=== PATIENT | female | born 1960 | race Caucasian/White ===

== ENCOUNTER 2017-04-04 21:46 | Emergency (ER) | payer OTHER ==
[2017-04-04 21:51] VITALS: BP 129/65
[2017-04-04] MEDS ORDERED: AMOX/CLAV 875 MG/125 MG TABLET PO STA (21:59)
--- NOTE | 2017-04-04 22:00 | ED Physician Documentation ---
PD HPI HEENT - Stated complaint Stated Complaint: EAR PX - Chief complaint Chief Complaint: Heent - History obtained from History obtained from: Patient - History of Present Illness Timing - onset: Other (She developed sore throat about a week ago, was not too bad but over the last couple of days has had a lot of ear pain especially on the left and some eye drainage bilaterally without fevers.) Review of Systems Constitutional: denies: Fever, Chills Ears: reports: Ear pain. denies: Loss of hearing, Drainage/discharge Nose: denies: Rhinorrhea / runny nose, Congestion Throat: reports: Sore throat PD PAST MEDICAL HISTORY - Present Medications Home Medications: Ambulatory Orders Medication Instructions Recorded Confirmed Amox/Clav 875/125 [Augmentin] 1 each PO Q12H #20 tablet 04/04/17 - Allergies Allergies/Adverse Reactions: Allergies Allergy/AdvReac Type Severity Reaction Status Date / Time No Known Drug Allergies Allergy Verified 04/04/17 21:51 PD ED PE NORMAL - Vitals Vital signs reviewed: Yes - General General: Alert and oriented X 3, No acute distress - HEENT HEENT: PERRL, EOMI, Other (Mild bilateral conjunctivitis in a pattern consistent with viral conjunctivitis. She has severe left otitis media, right TM is retracted. Oropharynx appears normal.) - Neck Neck: Supple, no meningeal sign, No bony TTP - Derm Derm: No rash - Neuro Neuro: Alert and oriented X 3, Normal speech - Psych Psych: Normal mood, Normal affect Results - Vitals Vitals: Vital Signs - 24 hr 04/04/17 21:49 Temperature 37.5 C Heart Rate 98 Respiratory 18 Rate Blood Pressure 129/65 O2 Saturation 98 Oxygen O2 Source Room air Departure - Departure Disposition: 01 Home, Self Care Clinical Impression: LOM (left otitis media) Qualifiers: Otitis media type: suppurative Chronicity: acute Recurrence: not specified as recurrent Spontaneous tympanic membrane rupture: without spontaneous rupture Qualified Code(s): H66.002 - Acute suppurative otitis media without spontaneous rupture of ear drum, left ear Condition: Good Record reviewed to determine appropriate education?: Yes Instructions: ED Otitis Media Acute Adult Prescriptions: Amox/Clav 875/125 [Augmentin] 1 each PO Q12H #20 tablet Comments: Follow-up with your physician on return home. Drink plenty of fluids. For symptom control you can take Benadryl and/or Sudafed which are available over- the-counter per package instructions.
[2017-04-04] MEDS ORDERED: AMOX/CLAV 875 MG/125 MG TABLET PO ONE (22:02)
== END 2017-04-04 22:06 | disposition home or self-care (01) ==
LOC: ED 21:46
DX: H66.002 Acute suppurative otitis media without spontaneous rupture of ear drum, left ear (principal)
CPT/HCPCS: 99283; A9270; 87430